=== PATIENT | male | born 1990 | race Two or more races ===

== ENCOUNTER 2020-05-13 21:20 | Emergency (ER) | payer OTHER ==
[2020-05-13 21:37] VITALS: BP 117/61
[2020-05-13] MEDS ORDERED: AMOXICILLIN TRIHYDRATE 500 MG CAPSULE PO ONE (22:21)
--- NOTE | 2020-05-13 22:25 | ER Document Report ---
ED ENT - General Chief Complaint: Ear Pain Stated Complaint: EAR PAIN Time Seen by Provider: 05/13/20 22:10 Primary Care Provider: MARIA LUZ CUMMINS MD [ACTIVE STAFF] - Follow up as needed Mode of Arrival: Ambulatory Information source: Patient Notes: 30-year-old male with no previous medical problems presents emergency room complaining that his right ear has felt clogged off and on for the past 3 days. He denies any trauma or injury. No recent swimming or flying. No fevers. States he does use Q-tips in his ears. Tried using hydrogen peroxide with minimal relief. TRAVEL OUTSIDE OF THE [place] IN LAST 30 DAYS: No - HPI Associated symptoms: None Similar symptoms previously: No Recently seen / treated by doctor: No - Related Data Allergies/Adverse Reactions: No Known Allergies Allergy (Unverified 05/13/20 22:10) Past Medical History - General Information source: Patient - Social History Smoking Status: Current Every Day Smoker Frequency of alcohol use: Occasional Drug Abuse: None Family History: Reviewed & Not Pertinent Patient has homicidal ideation: No - Past Medical History Cardiac Medical History: Reports: None Review of Systems - Review of Systems Constitutional: No symptoms reported EENT: Other - Right ear feels clogged. denies: Ear pain Cardiovascular: No symptoms reported Respiratory: No symptoms reported Gastrointestinal: No symptoms reported Skin: No symptoms reported Neurological/Psychological: No symptoms reported -: Yes All other systems reviewed and negative Physical Exam - Vital signs Vitals: Temp Pulse Resp BP Pulse Ox 97.8 F 66 16 117/61 99 05/13/20 21:32 05/13/20 21:32 05/13/20 21:32 05/13/20 21:32 05/13/20 21:32 - General General appearance: Appears well, Alert In distress: Mild - HEENT Head: Normocephalic, Atraumatic Eyes: Normal Pupils: PERRL Tympanic membrane: Other - Right outer ear canal with cerumen impaction. Left tympanic membrane intact without erythema or swelling. Left outer ear canal without erythema swelling Nasal: Normal Pharynx: Normal Neck: Normal. No: Lymphadenopathy - Respiratory Respiratory status: No respiratory distress Chest status: Nontender Breath sounds: Normal Chest palpation: Normal - Cardiovascular Rhythm: Regular Heart sounds: Normal auscultation Murmur: No - Neurological Neuro grossly intact: Yes Cognition: Normal Orientation: AAOx4 [place] Coma Scale Eye Opening: Spontaneous [place] Coma Scale Verbal: Oriented [place] Coma Scale Motor: Obeys Commands North Coma Scale Total: 15 Speech: Normal Motor strength normal: LUE, RUE, LLE, RLE Sensory: Normal - Skin Skin Temperature: Warm Skin Moisture: Dry Skin Color: Normal Course - Re-evaluation Re-evalutation: 05/13/20 22:23 Counseled patient to get [id number] Debrox and use as directed. Take antibiotics as prescribed. After removal of cerumen the right tympanic membrane is erythematous and bulging. Right outer ear canal with some cerumen still noted but no erythema or swelling. Follow-up with ENT if not improving in 2 to 3 days. On-call physician was provided. Patient was given strict return to the emergency room guidelines. Return for any new or worsening symptoms. All questions were answered. Patient verbalized understanding and agrees with plan of care. 05/13/20 22:56 - Vital Signs Vital signs: Temp Pulse Resp BP Pulse Ox 97.8 F 66 16 117/61 99 05/13/20 22:11 05/13/20 21:32 05/13/20 21:32 05/13/20 21:32 05/13/20 21:32 Procedures - Additional Procedures cerumen impaction Time performed: 22:21 - Remove cerumen from the right ear canal with a curette. Post removal of cerumen with tympanic membrane bulging and erythematous. Ear canal without erythema or swelling. Discharge - Discharge Clinical Impression: Right ear impacted cerumen Right otitis media Qualifiers: Otitis media type: unspecified Qualified Code(s): H66.91 - Otitis media, unspecified, right ear Condition: Stable Disposition: HOME, SELF-CARE Instructions: Cerumen Impaction ([facility]), Otitis Media ([facility]) Additional Instructions: Use [id number] Debrox as vented. Antibiotics as prescribed. Recheck with ENT if not improving in 2 to 3 days. Return for any new or worsening symptoms. Prescriptions: Amoxicillin 1 tab PO TID #30 tab Referrals: MARIA LUZ CUMMINS MD [ACTIVE STAFF] - Follow up as needed
== END 2020-05-13 22:29 | disposition home or self-care (01) ==
LOC: ER 21:20
DX: H61.21 Impacted cerumen, right ear (principal); H66.91 Otitis media, unspecified, right ear; F17.200 Nicotine dependence, unspecified, uncomplicated
CPT/HCPCS: 99282